=== PATIENT | female | born 1990 | race Caucasian/White ===

== ENCOUNTER → 2017-11-24 09:13 | Outpatient (CLI) | payer SELFPAY ==
[2017-11-26 13:25] LABS: HPV Reflexed? NOT INDICATED
== END ==
PROVIDERS: Visit Provider Obstetrics & Gynecology
DX: Z12.4 Encounter for screening for malignant neoplasm of cervix (principal)
CPT/HCPCS: 88175; G0145

== ENCOUNTER → 2019-10-27 | Outpatient (CLI) | payer SELFPAY ==
[2019-11-01 13:47] LABS: HPV Reflexed? NOT INDICATED
== END | disposition home or self-care (01) ==
PROVIDERS: Referring Provider Obstetrics & Gynecology; Visit Provider Obstetrics & Gynecology
DX: Z12.4 Encounter for screening for malignant neoplasm of cervix (principal)
CPT/HCPCS: 88175; G0145

== ENCOUNTER → 2020-07-25 17:07 | Outpatient (CLI) | payer SELFPAY ==
[2015-12-18 07:10] VITALS: BMI 34.9
[2020-07-25 17:59] LABS: Absolute Lymphocyte Count 1.98 X10^3/uL (0.83-4.51); Basophil# 0.02 X10^3/uL; Basophil% 0.2 % (0-1); Eosinophils% 1.1 % (0-5); Hematocrit 37.2 % (37-47); Hemoglobin 12.6 g/dL (12.0-15.0); Lymphocyte # 1.98 X10^3/ul (4.0); Lymphocyte % 22.6 % (19-41); Mean Corp Hgb Conc 33.9 g/dL (32-36); Mean Corpuscular Hgb 30.6 pg (27.0-32.0); Mean Corpuscular Volume 90.3 fL (81-99); Mean Platelet Vol. 11.2 fl (6.2-12.0); Monocyte# 0.64 X10^3/uL; Monocyte% 7.3 % (0-10); NRBC Flagged by Analyzer 0 % (0-5); Neutrophil % 68.5 % (47-70); Platelet Count 175 K/mm3 (150-450); RBC Distribution Width CV 11.8 % (11.6-14.6); RBC Distribution Width SD 38.6 fl (35.1-43.9); Red Blood Count 4.12 M/mm3 (4.2-5.4); White Blood Count 8.8 K/mm3 (4.4-11.0)
[2020-07-25 18:03] LABS: Color, Urine Yellow (Yellow); Glucose, Dipstick Normal (Normal); Ketone-Dipstick Negative (Negative); Leukocyte Esterase-Dipstick Negative /ul (Negative); Nitrite-Dipstick Negative (Negative); Occult Blood-Urine Negative /ul (Negative); Protein-Dipstick Negative (Negative); Specific Gravity, Urine 1.025 (1.002-1.030); Urine Bilirubin Dipstick Negative (Negative); Urine Clarity Sl. Cloudy (Clear); Urine Urobilinogen Normal (Normal)
[2020-07-25 18:56] LABS: Thyroid Stim Hormone (TSH) 1.05 uIU/mL (0.358-3.74)
[2020-07-26 09:00] LABS: HIV - WCH Non-Reactive (Nonreactive); Hepatitis B Surface Antigen Non-Reactive (Nonreactive); Hepatitis C Antibody Non-Reactive (Nonreactive)
[2020-07-26 10:23] LABS: Rubella IgG Reactive (Nonreactive)
[2020-07-30 03:06] LABS: Chlamydia By Nucleic Acid AMP Negative (Negative)
[2020-07-30 12:08] LABS: Gonococcus By Nucleic Acid AMP Negative (Negative)
[2020-08-01 02:10] LABS: Prenatal RPR NONREACTIVE (NONREACTIVE)
== END ==
PROVIDERS: Visit Provider Obstetrics & Gynecology
DX: Z34.81 Encounter for supervision of other normal pregnancy, first trimester (principal); Z11.3 Encounter for screening for infections with a predominantly sexual mode of transmission
CPT/HCPCS: 36415; 81002; 84443; 85025; 86703; 86762; 86803; 87340; 87491; 87591

== ENCOUNTER → 2020-11-13 10:44 | Outpatient (CLI) | payer SELFPAY ==
[2015-12-18 07:10] VITALS: BMI 34.9
[2020-11-13 11:03] LABS: Hematocrit 33.5 % (37-47); Hemoglobin 11.6 g/dL (12.0-15.0); Mean Corp Hgb Conc 34.6 g/dL (32-36); Mean Corpuscular Hgb 31.8 pg (27.0-32.0); Mean Corpuscular Volume 91.8 fL (81-99); Mean Platelet Vol. 10.3 fl (6.2-12.0); Platelet Count 157 K/mm3 (150-450); RBC Distribution Width CV 12.3 % (11.6-14.6); RBC Distribution Width SD 41.2 fl (35.1-43.9); Red Blood Count 3.65 M/mm3 (4.2-5.4); White Blood Count 8.9 K/mm3 (4.4-11.0)
[2020-11-13 11:33] LABS: Glucose Challenge Gest 1H 50g 96 mg/dL (70-140)
== END ==
PROVIDERS: Visit Provider Obstetrics & Gynecology
DX: Z34.83 Encounter for supervision of other normal pregnancy, third trimester (principal)
CPT/HCPCS: 36415; 82950; 85027

== ENCOUNTER → 2021-01-07 | Outpatient (CLI) | payer SELFPAY | END | disposition home or self-care (01) | LOC: LABSPEC 01-08 09:30 | PROVIDERS: Visit Provider Obstetrics & Gynecology | DX: Z36.85 Encounter for antenatal screening for Streptococcus B (principal) | CPT/HCPCS: 87081 ==

== ENCOUNTER 2021-02-07 15:40 | Outpatient (CLI) | payer SELFPAY, OTHER ==
[2015-12-18 07:10] VITALS: BMI 34.9
[2021-02-07 16:05] VITALS: BMI 38.0
[2021-02-07 16:07] VITALS: BP 128/73; PULSE 93
--- NOTE | 2021-02-09 09:44 | OB.TRI.NOTE ---
HPI - General HPI Narrative ATUL MACDONALD, is a 30 F who presents to labor and delivery with some contractions. She is scheduled for induction in 2 days for postdatism. care is otherwise been uneventful. [facility] Home Medications vit,[id number] [Prenatabs FA] 1 tab PO DAILY 12/18/15 [History Last Taken 2 Days Ago ~12/16/15] Allergy/AdvReac Type Severity Reaction Status Date / Time No Known Allergies Allergy Verified 12/18/15 07:51 Social History Smoking Status: Never smoker History Elective abortions Hx Para 3 Spontaneous abortions Hx # Term Pregnancies Ectopic pregnancies Hx # Pregnancies Multiple births # of living children NST FHR Rate Baby A NST Reactive:: Yes FHR Category:: Category I Assessment & Plan Assessment/Plan (1) False labor, antepartum: PLAN: 40+ week intrauterine with false labor. No change in cervical exam after monitoring for several hours. To come in for scheduled induction or if labor ensues prior to that.
== END 2021-02-07 17:40 ==
LOC: WPOUT 15:54 → WP 15:54
PROVIDERS: Referring Provider Obstetrics & Gynecology; Visit Provider Obstetrics & Gynecology
DX: O47.1 False labor at or after 37 completed weeks of gestation (principal); Z3A.40 40 weeks gestation of pregnancy
CPT/HCPCS: 59025; 59050; 99218; G0378

== ENCOUNTER 2021-02-10 09:25 | Inpatient (IN) | payer SELFPAY, OTHER ==
[2021-02-10] VITALS (60 sets, daily range): BP systolic 94–137; BP diastolic 53–89; PULSE 60–95; TEMP 36.2–36.9; O2SAT 86–100; BMI 37.5
[2021-02-10] MEDS: Lactated Ringers 1,000 ML 50 ML IV (09:55)
[2021-02-10] MEDS: Oxytocin 30 units/NS 500 ml 30 UNITS/500 ML IV.SOLN IV (10:22)
[2021-02-10 10:25] LABS: Absolute Neutrophil Count 5.8 X10^3/uL (2.0-7.7); Basophil# 0.01 X10^3/uL; Basophil% 0.1 % (0-1); Eosinophil# 0.06 X10^3/uL; Eosinophils% 0.7 % (0-5); Hematocrit 34.8 % (37-47); Hemoglobin 11.7 g/dL (12.0-15.0); Lymphocyte % 20.7 % (19-41); Mean Corp Hgb Conc 33.6 g/dL (32-36); Mean Corpuscular Volume 92.3 fL (81-99); Mean Platelet Vol. 10.7 fl (6.2-12.0); Monocyte% 7.3 % (0-10); NRBC Flagged by Analyzer 0 % (0-5); Neutrophil # 5.79 X10^3/uL (2.7-7.7); Neutrophil % 70.7 % (47-70); Platelet Count 115 K/mm3 (150-450); RBC Distribution Width CV 12.5 % (11.6-14.6); RBC Distribution Width SD 41.9 fl (35.1-43.9); Red Blood Count 3.77 M/mm3 (4.2-5.4); White Blood Count 8.2 K/mm3 (4.4-11.0)
[2021-02-10] MEDS: fentaNYL 100 MCG/2 ML Ampul IV (14:49)
[2021-02-10] MEDS: Lactated Ringers 500 ML 999 ML IV (15:10)
[2021-02-10] MEDS: fentaNYL-bupivacaine (epidural) 100 ML BAG EPIDURAL (16:50)
[2021-02-10] MEDS: Lactated Ringers 1,000 ML 200 ML IV (17:59)
[2021-02-10] MEDS: Oxytocin 30 units/NS 500 ml 30 UNITS/500 ML IV.SOLN 334 UNITS IV (20:07)
--- NOTE | 2021-02-10 20:19 | HP.PCM_ITS ---
History and Physical Date of Admission: 02/10/21 OG ANTEPARTUM RECORD - HISTORY AND PHYSICAL (02/10/2021) Name: NILDA MACDONALD History of this : This is a 30 year old [id number] presents at 41 wks + 1 days gestation for postdates induction. OB Physician: Balta Saleh MD [place]'s Physician: [facility] in [place] ...................................................................... : 1990 Age: 30 [address]: [address] [place] [address] Phone: H) [phone] Insurance Carrier: Emergency Contact: MARIBELL NORMAN [phone] ...................................................................... Final RAUDEL: 02/02/21 By Ultrasound: 12 weeks 4 days PARITY: (G-Total Pregnancies P-Fullterm,Premature,Induced AB,Spont AB, Ectopics, Multiple,Living) RAUDEL CONFIRMATION: By LMP: 04/28/20 Initial Exam: 02/02/21 By First Ultrasound Exam: 02/02/21 Final RAUDEL: 02/02/21 OB PROBLEM LIST: History leg varicosities, mastitis w first two babies, chickenpox. Thinks she and whole family had COVID19 mid Jun. ALBERT, ST, loss of taste/smell. Mildly echogenic bowel and small heart calcificaton; no further f/u planned MSAFP and CF testing declined ALLERGIES: NKDA MEDICATIONS: 28 mg-800 mcg tablet daily SOCIAL HISTORY: Smoking - Never Alcohol Use - occasionally not while Diet - moderate, balanced diet, coffee 1-2 cups daily and water 3 liters Lifestyle - low stress lifestyle and Exercise - busy at home, walking Job Description - housewife Illicit Drug Use - denies use of street drugs Sexual Activity - Residence - lives with Place of - [place] Spouse-Sig Other Name - Aditya Spouse-Sig Other Occupation - Construction Spouse-Sig Other Phone No - [phone] Children Name(s) - Kely Mills, Az, Cony PRIOR DELIVERY HISTORY DEL DATE GEST LAB WT LB WT OZ TYPE ANES LABOR TX 02 Jun 07 40 6 6 14 Vag Epidural No Jan 07 40 6 6 7 Vag Epidural No Dec 10 41 6 7 11 Vag None No Apr 05 39 20 7 7 Vag Epidural No ANTEPARTUM FLOW CHART VISIT RTC FU F F [place] U U DATE WK MD WKS HT PN HR M SS BP ED WT [place] GL D EF ST __ ____ ___ __ __ ___ __ __ __ ___ __ __ __ ___ __ January JMW 6 38 V + + 116/70 sl 213 - - 2+ 50 -2 04 May 39 JMW 1 38 V + + 112/64 sl 214 - - S Dec JMW 1 38 V + + 108/64 sl 214 tr - S Dec JM 1 37 V + + 126/70 sl 213 tr - Dec 36 JMW 1 36 V + + 118/64 sl 216 tr - ft 50 -2 05 Dec JMW 1 35 + + 110/62 0 216 - - 11 Dec 25 JMW 2 32 + + 114/68 sl 212 tr - 17 Nov 24 JMW 3 28 + + 138/72 0 211 tr ne Oct 19 JMW 4 24 + + 116/64 sl 204 tr - 15 Sep 14 JMW 4 20 + + 114/72 sl 200 ne ne Aug 12 JMW 4 16 + ? 114/75 0 200 tr - ANTEPARTUM NOTE(S): Feb 04 2021: Ctxs-occas, Discharge noted, Induce Jan 28 2021: see progress note, Good FM Jan 21 2021: see progress note, Good FM Jan 14 2021: Ctxs-occas, Good FM Jan 07 2021: Ctxs-occas, GBS today, LARC signed Dec 30 2020: no concerns, informed of GBS at next visit Dec 05 2020: Low periodic cramping Nov 13 2020: GCT today, c/o yeast infection, monistat/lotrimin Oct 08 2020: Glucola/Instruction Given,Good FM Sep 10 2020: US today Aug 20 2020: doing well, declines AFP COMPREHENSIVE ANTEPARTUM NOTE(S): Jan 28 2021: Nilda presents for her PNV. She reports frequent crampiness but few contractions. Pt is a and sts she has never gone into labor on her own. She is wanting her membranes stripped today and sts if she does not deliver by next week would consider induction. She has only slight edema in her extremities. +FM noted. JT Jan 21 2021: Nilda presents for her PNV. She is reporting +FM and only has slight swelling in her lower extremities. Pt sts she is very crampy and has increased pelvic pressure, and also notes a dull ALBERT almost daily. Pt sts she is Just not feeling well overall. JT Jan 14 2021: 37wk, GBS negative. JM Jan 14 2021: H faxd to OB Dec 30 2020: Nilda is here for a PNV. Good FM. No edema present. No concerns expressed at this time. Informed of GBS and LARC at next visit. MK Dec 05 2020: Nilda presents here today for PNV and reports that the last two days she has noticed alittle periodic low cramping in her pelvic region. We discussed s/s of dehydration and she plans to increase her water intake. Urine Dip all negative with pH - 5 and Sp Gr 1.020. AVILA Nov 13 2020: Nilda is here for PNV. To have GCT drawn today. Having c/o possible yeast infection vaginally and in folds of panis. Having creamy white vaginal discharge with itching. No urinary symptoms. No edema presently but states she does usually have some swelling of hands by end of day. Good FM. Urine dipped tr/neg. LSS Sep 10 2020: Nilda is here for PNV. Had her US today. States she is feeling really well. No N/V. Eating and taking in fluids well. Having some slight swelling in hands in the am, but no edema in feet. Good FM. Urine dipped neg and neg. No concerns for today. LSS Aug 13 2020: TELEHEALTH NOB-- Nilda is a 30 yo G 5 P 4 Bahai homemaker w RAUDEL January 29, 2021 planning a vag del at [facility] without epidural using [facility] for post disch ped and to breastfeed. Her , Aditya works in construction. Their youngest is almost 5 and the pg was a surprise but they're happy. Nilda still has some nausea though it is improving and she is quite tired and sleeps when she can. Jul 25 2020: Nilda is being seen for missed menses. . 30 years old. UPT in office is positive. LMP 04/28/20. Pt is about 12 weeks and 4 days. RAUDEL 02/02/21. Pt experiencing nausea daily and occasional headaches. Last pap 2019 WNL. STD cultures today. information reviewed and given to pt. Medications and allergies are up to date. AM Jul 25 2020: ok REVIEW OF SYSTEMS: GENERAL - Denies fever, or chills SKIN - Denies rash, new skin lesions, or change in moles EYES - Denies blurred vision, or change in visual acuity EARS - Denies ear pain, or difficulty hearing NOSE - Denies nasal congestion, discharge, or bleeding MOUTH - Denies sore throat, or difficulty swallowing NECK - Denies pain or swelling RESPIRATORY - Denies shortness of breath, cough, wheezing CARDIOVASCULAR - Denies palpitations, chest pain, orthopnea, PND, peripheral edema, syncope or claudication GASTROINTESTINAL - Denies nausea, vomiting, diarrhea, constipation, Denies abdominal pain, melena and or bright red blood GENITOURINARY - Denies dysuria, frequency of urination, urgency, or hesitancy MUSCULOSKELETAL - Denies joint or muscle pain, or back pain NEUROLOGICAL - Denies localized numbness, weakness, or tingling PSYCHIATRIC - Denies depression, anxiety, substance abuse or suicide attempts ENDOCRINE - Denies heat or cold intolerance, weight loss or gain, increasing thirst HEMATO-IMMUNOLOGIC - Denies easy bruising, bleeding, oral ulcerations or recurrent infections GENETICS SCREENING: Age 35+ years: No Thalassemia: No Neural Tube Defect: No Down Syndrome: No FELIPE-SACHS: No Sickle Cell Disease: No Hemophilia: No Musc. Dystrophy: No Cystic Fibrosis: No-declines screening [place]ju[place] Chorea: No Mental Retardation: No Fragile X: No Other genetic: No Other defects: No SABs/still births: No Drugs since LMP: No INFECTION HISTORY: High risk AIDS: No High risk Hepatitis: No Exposed to TB: No Exposed to Herpes: No Rash/viral illness since LMP: No History of STD: No MENSTRUAL HISTORY: *Menses Amount/Duration: 4 daysMenses Regularity: RegularFrequency: monthlyBCP's at Conception: NoMenarche (Age Onset): 11HCG+: 12/23/2010* PAST SUMMARY: PARITY: 1. Total Pregnancies............ 5 2. Full Term Pregnancies........ 4 3. Premature.................... 0 4. Abortions - Induced.......... 0 5. Abortions - Spontaneous...... 0 6. Ectopics..................... 0 7. Multiple Births.............. 0 8. Living Children.............. 4 PAST #1: Date of :.................. 04/23/10 Gestation Weeks:................ 39 Length of labor(hours):......... 20 Sex:............................ M Weight-lbs:............... 7 Weight-oz:................ 7 Type of Delivery:............... Vag Type of Anesthesia:............. Epidural Place of Delivery:.............. [place] Treatment of Labor?:.... No Comment: PAST #2: Date of :.................. 05/29/11 Gestation Weeks:................ 40 Length of labor(hours):......... 6 Sex:............................ F Weight-lbs:............... 6 Weight-oz:................ 14 Type of Delivery:............... Vag Type of Anesthesia:............. Epidural Place of Delivery:.............. [place] Treatment of Labor?:.... No Comment: PAST #3: Date of :.................. 01/04/13 Gestation Weeks:................ 40 Length of labor(hours):......... 6 Sex:............................ F Weight-lbs:............... 6 Weight-oz:................ 7 Type of Delivery:............... Vag Type of Anesthesia:............. Epidural Place of Delivery:.............. [place] Treatment of Labor?:.... No Comment: INDUCTION, POST-DATES PAST #4: Date of :.................. 12/18/15 Gestation Weeks:................ 41 Length of labor(hours):......... 6 Sex:............................ F Weight-lbs:............... 7 Weight-oz:................ 11 Type of Delivery:............... Vag Type of Anesthesia:............. None Place of Delivery:.............. [place] Treatment of Labor?:.... No Comment: NO PHYSICAL EXAMINATION General Appearence: 30 yo female in no acute distress Vital Signs: AF, VSS Heart: RRR without rubs or gallops Lungs: CTA x 2 Breasts: deferred Abdomen: gravid Pelvis: Cervix: 3-4/75 Presentation: cephalic Station: -2 posterior Fetus: Size: AGA Movement: present Heart: present LAB TEST(S) ORDERED SINCE:05/08/20 08/01/2020 RPR 07/30/2020 CHLAMYDIA/GC SANGEETA APTIMA 07/26/2020 RUBELLA IGG 07/26/2020 HIV - [facility] 07/26/2020 HEPATITIS C ANTIBODY 07/26/2020 HEPATITIS B SURFACE ANTIGEN 07/25/2020 URINALYSIS, ROUTINE (DIPSTICK) 07/25/2020 THYROID STIM HORMONE (TSH) 07/25/2020 T AND S-NO CHARGE W/PNP 07/25/2020 CBC W/DIFF, AUTOMATED 02/10/2021 TYPE AND SCREEN 02/10/2021 CBC W/DIFF, AUTOMATED 01/12/2021 CULTURE, GROUP B STREPTOCOCCUS 11/13/2020 GLUCOSE CHALLENGE GEST 1H 50G 11/13/2020 CBC-COMPLETE BLOOD CNT NO DIFF == ==== Order Observation Description Value Ref_Range A* Site == ==== Labor [facility]~[address] [place], [address]~ TYPE AND SCRE AB SCREEN GEL NEGATIVE ML CBC W/DIFF, AUT NOTE MOSER CBC W/DIFF, AUT WBC 8.2 K/mm3 4.4-11.0 ML CBC W/DIFF, AUT RBC 3.77 M/mm3 4.2-5.4 L ML CBC W/DIFF, AUT HGB 11.7 g/dL 12.0-15.0 L ML CBC W/DIFF, AUT HCT 34.8 37-47 L ML CBC W/DIFF, AUT MCV 92.3 fL 81-99 ML CBC W/DIFF, AUT MCH 31.0 pg 27.0-32.0 ML CBC W/DIFF, AUT MCHC 33.6 g/dL 32-36 ML CBC W/DIFF, AUT RDW CV 12.5 11.6-14.6 ML CBC W/DIFF, AUT RDW SD 41.9 fl 35.1-43.9 ML CBC W/DIFF, AUT PLT 115 K/mm3 150-450 L ML CBC W/DIFF, AUT MPV 10.7 fl 6.2-12.0 ML CBC W/DIFF, AUT NEUT% 70.7 47-70 H ML CBC W/DIFF, AUT LY% 20.7 19-41 ML CBC W/DIFF, AUT MONO% 7.3 0-10 ML CBC W/DIFF, AUT EO% 0.7 0-5 ML CBC W/DIFF, AUT BASO% 0.1 0-1 ML CBC W/DIFF, AUT IG% 0.500 0.0-0.9 ML IG% - Immature Granulocytes (promyelocytes, myelocytes and metamyelocytes) > 1% indicates that a LEFT SHIFT is Present. CBC W/DIFF, AUT ABSOLUTE NEUT 5.8 X10 3/uL 2.0-7.7 ML CBC W/DIFF, AUT ABSOLUTE LYMPH 1.70 X10 3/uL 0.83-4.51 ML CBC W/DIFF, AUT NUCLEATED RBC 0 0-5 ML CULTURE, GROUP NOTE MOSER GLUCOSE CHALLEN NOTE MOSER GLUCOSE CHALLEN GLU GEST 50G 1H 96 mg/dL 70-140 ML CBC-COMPLETE BL NOTE MOSER CBC-COMPLETE BL WBC 8.9 K/mm3 4.4-11.0 ML CBC-COMPLETE BL RBC 3.65 M/mm3 4.2-5.4 L ML CBC-COMPLETE BL HGB 11.6 g/dL 12.0-15.0 L ML CBC-COMPLETE BL HCT 33.5 37-47 L ML CBC-COMPLETE BL MCV 91.8 fL 81-99 ML CBC-COMPLETE BL MCH 31.8 pg 27.0-32.0 ML CBC-COMPLETE BL MCHC 34.6 g/dL 32-36 ML CBC-COMPLETE BL RDW CV 12.3 11.6-14.6 ML CBC-COMPLETE BL RDW SD 41.2 fl 35.1-43.9 ML CBC-COMPLETE BL PLT 157 K/mm3 150-450 ML CBC-COMPLETE BL MPV 10.3 fl 6.2-12.0 ML RPR NOTE MOSER RPR RPR NONREACTIVE NONREACTIVE ML CHLAMYDIA/GC NA NOTE MOSER CHLAMYDIA/GC NA CHLAMY,NUC ACID Negative Negative LC CHLAMYDIA/GC NA GC BY NUC ACID Negative Negative LC Performed at: = - [facility] [id number] Compliance Testing Analyst: Apple Parisi MD, Phone: [phone] HEPATITIS C ANT NOTE MOSER HEPATITIS C ANT HEPATITIS C AB Non-Reactive Nonreactive ML Non Reactive: < 0.8 Equivocal: >/= 0.8 to < 1.0 Reactive: >/= 1.0 The CDC recommends that a reactive/equivocal HCV antibody result be followed up by the HCV Nucleic Acid Amplification test (007102) HEPATITIS B OG NOTE MOSER HEPATITIS B OG HEPB SURFACE AG Non-Reactive Nonreactive ML HIV - [facility] NOTE MOSER HIV - [facility] HIV - [facility] Non-Reactive Nonreactive ML RUBELLA IGG NOTE MOSER RUBELLA IGG RUBELLA IGG Reactive Nonreactive ML Antibody Results Interpretation of Immune Status Non Reactive Presumed Non-Immune Equivocal Equivocal Reactive Presumed Immune Reason for Type AND Screen/Red Cells: Surgery? N [facility]~[address] [place], [address]~ T AND BLOOD TYPE GEL A POSITIVE N ML T AND AB SCREEN GEL NEGATIVE N ML THYROID STIM HO NOTE MOSER THYROID STIM HO TSH 1.05 uIU/mL 0.358-3.74 ML URINALYSIS, ROU NOTE MOSER URINALYSIS, ROU COLOR Yellow Yellow ML URINALYSIS, ROU CLARITY Sl. Cloudy Clear ML URINALYSIS, ROU GLUCOSE, UR Normal mg/dl Normal ML URINALYSIS, ROU BILIRUBIN URINE Negative mg/dL Negative ML URINALYSIS, ROU KETONE UR Negative mg/dl Negative ML URINALYSIS, ROU SP.GR. DIPSTX 1.025 1.002-1.030 ML URINALYSIS, ROU PH UR 6.0 5.0 - 8.0 ML URINALYSIS, ROU PROT DIPSTX Negative mg/dl Negative ML URINALYSIS, ROU UROBILI Normal mg/dl Normal ML URINALYSIS, ROU NITRITE UR Negative Negative ML URINALYSIS, ROU OCCULT BLOOD-UR Negative /ul Negative ML URINALYSIS, ROU LEUK ESTERASE Negative /ul Negative ML CBC W/DIFF, AUT NOTE MOSER CBC W/DIFF, AUT WBC 8.8 K/mm3 4.4-11.0 ML CBC W/DIFF, AUT RBC 4.12 M/mm3 4.2-5.4 L ML CBC W/DIFF, AUT HGB 12.6 g/dL 12.0-15.0 ML CBC W/DIFF, AUT HCT 37.2 % 37-47 ML CBC W/DIFF, AUT MCV 90.3 fL 81-99 ML CBC W/DIFF, AUT MCH 30.6 pg 27.0-32.0 ML CBC W/DIFF, AUT MCHC 33.9 g/dL 32-36 ML CBC W/DIFF, AUT RDW CV 11.8 % 11.6-14.6 ML CBC W/DIFF, AUT RDW SD 38.6 fl 35.1-43.9 ML CBC W/DIFF, AUT PLT 175 K/mm3 150-450 ML CBC W/DIFF, AUT MPV 11.2 fl 6.2-12.0 ML CBC W/DIFF, AUT NEUT% 68.5 % 47-70 ML CBC W/DIFF, AUT LY% 22.6 % 19-41 ML CBC W/DIFF, AUT MONO% 7.3 % 0-10 ML CBC W/DIFF, AUT EO% 1.1 % 0-5 ML CBC W/DIFF, AUT BASO% 0.2 % 0-1 ML CBC W/DIFF, AUT IM GRAN % 0.300 % 0.0-0.9 ML IG% - Immature Granulocytes (promyelocytes, myelocytes and metamyelocytes) > 1% indicates that a LEFT SHIFT is Present. CBC W/DIFF, AUT ABSOLUTE NEUT 6.0 X10 3/uL 2.0-7.7 ML CBC W/DIFF, AUT ABSOLUTE LYMPH 1.98 X10 3/uL 0.83-4.51 ML CBC W/DIFF, AUT NRBC, FLAGGED 0 % 0-5 ML A POSITIVE RIRI Culture Group B Beta Streptococcus is not isolated. == ==== Impression /Plan: 41 wks + 1 days intrauterine for postdates induction with Pitocin and rupture of membranes. Preparations in progress for delivery.
--- NOTE | 2021-02-10 20:21 | OP.PCM_ITS ---
Maternal Data Information Final RAUDEL: 02/10/21 Final RAUDEL Source: US <20 weeks Gestational age: 41 weeks 1 day [place] Doctor Who Attended Delivery: Alonso Ruiz Vaginal Delivery Maternal Presentation Maternal Presentation: Medically Indicated Induction Type of Induction: Pitocin and Amniotomy Medical Reason for Induction: Post term Operative Information Date of Procedure: 02/10/21 Pre-Operative Diagnosis: IUP, Postdates Post-Operative Diagnosis: IUP, Postdates Type of Anesthesia: Epidural Estimated Blood Loss: 250 cc Findings Description of Procedure: Spontaneous vaginal delivery of a viable male with Apgars of 7/9 from an occiput anterior presentation with lightly stained meconium fluid and three-vessel placenta. Cord around the neck x1 loose. No episiotomy or lacerations. Sponges okay. Delivery physician: Balta Saleh MD. Presentation: Vertex Amniotic Membrane Rupture Type: Spontaneous Amniotic Fluid Description: Lightly stained meconium Placental Delivery Description: Spontaneous Placenta Disposition: [facility] Cord Vessel Description: 3 Vessels Cord Entanglement: Around neck x 1, loose A Gender: Male (1 minute): 7 (5 minute): 9 Post Vaginal Delivery Medications Given After Delivery: IV Pitocin Episiotomy Description: None Laceration: None Complication Complications: None
--- NOTE | 2021-02-10 20:25 | PCM.DC ---
Discharge Instructions Diet Discharge Diet: No restrictions Activity Discharge Activity: May Shower May resume sexual activity in: 4-6 weeks Additional Activity Instructions:: Nothing in the vagina for 4-6 weeks. You may return to work/school in 6 weeks. Dressing / Incision Call your doctor if you observe: Fever of 101 or Higher, Inability to urinate, Inability to have a bowel movement and Using more than one pad per hour Follow Up Care Please Follow Up With: Balta Saleh MD When: Call [phone] to make an appointment with your doctor in 6 weeks. Test Results: Test results from this visit will be discussed in further detail at your follow-up appointment, if applicable. Discharge Plan Admission Admit Date/Time: 02/10/21 09:25 Primary Reason for Your Visit: Vaginal Delivery Attending Provider: Balta Saleh Discharge Orders/Prescriptions Prescriptions: Continued Prenatabs FA 1 TABLET tablet 1 tab PO DAILY RF: 0 Disposition Disposition (needs filled in before D/C Order can be placed): Home, self care
--- NOTE | 2021-02-10 23:05 | NURSING ---
Report given to Salud ORLANDO, taking over pt and infant care at this time.
[2021-02-11 00:23] VITALS: BP 113/83; PULSE 82; RESP 18; TEMP 36.9
[2021-02-11 04:10] VITALS: BP 97/53; PULSE 66; TEMP 36.8
[2021-02-11] MEDS: Acetaminophen 500 MG Tablet 1000 MG PO (04:22)
[2021-02-11 07:58] VITALS: BP 103/61; PULSE 75; RESP 16; TEMP 36.4
--- NOTE | 2021-02-11 08:38 | PN.OBGYN_ITS ---
Subjective Subjective Patient without complaints. Minimal vaginal bleeding. Breast-feeding going well. Wants to go home if baby is able to go later today. Objective Data Objective Data Vital Signs: Vital Signs Temp Pulse Resp BP Pulse Ox 97.6 F L 75 16 103/61 99 02/11/21 07:58 02/11/21 07:58 02/11/21 07:58 02/11/21 07:58 02/10/21 22:16 Oxygen Delivery Method Room Air Weight: 212 lb 1.355 oz Body Mass Index (BMI) 37.5 Intake & Output: Intake and Output for Last 24 Hours 02/09/21 02/10/21 02/11/21 23:59 23:59 23:59 Intake Total 2429.33 / 2429.33 Output Total 600 / 600 1240 / 1240 Balance 1829.33 / 1829.33 -1240 / -1240 Lab / Micro Data Result Diagrams: 02/10/21 09:55 Labs: Laboratory Results - last 24 hr 02/10/21 02/10/21 09:55 09:55 WBC 8.2 RBC 3.77 L Hgb 11.7 L Hct 34.8 L MCV 92.3 MCH 31.0 MCHC 33.6 RDW Std Deviation 41.9 RDW Coeff of Zia 12.5 Plt Count 115 L MPV 10.7 Immature Gran % (Auto) 0.500 Neut % (Auto) 70.7 H Lymph % (Auto) 20.7 [place]orne % (Auto) 7.3 Eos % (Auto) 0.7 Baso % (Auto) 0.1 Absolute Neuts (auto) 5.8 Absolute Lymphs (auto) 1.70 Nucleated RBC % 0 Blood Type A POSITIVE Antibody Screen NEGATIVE Assessment & Plan (1) Vaginal delivery: COMMENT: Doing well day #1 status post routine spontaneous vaginal delivery. Will discharge to home later today if baby is able to go.
[2021-02-11 12:37] VITALS: BP 101/54; PULSE 778; RESP 18; TEMP 36.4
[2021-02-11 16:40] VITALS: BP 111/72; PULSE 81; RESP 18; TEMP 36.4
[2021-02-11 20:35] VITALS: BP 113/59; PULSE 81; RESP 16; TEMP 36.9
[2021-02-12 02:45] VITALS: BP 115/70; PULSE 68; RESP 18; TEMP 36.1
[2021-02-12 08:40] VITALS: BP 110/63; PULSE 84; RESP 16; TEMP 36.6
--- NOTE | 2021-02-12 08:53 | PCM.PN.OB ---
Subjective Subjective Patient without complaints. Breast-feeding going well. Stay last evening because baby needed to stay. Objective Data Objective Data Vital Signs: Vital Signs Temp Pulse Resp BP Pulse Ox 97 F L 68 18 115/70 99 02/12/21 02:45 02/12/21 02:45 02/12/21 02:45 02/12/21 02:45 02/10/21 22:16 Oxygen Delivery Method Room Air Weight: 212 lb 1.355 oz Body Mass Index (BMI) 37.5 Intake & Output: Intake and Output for Last 24 Hours 02/10/21 02/11/21 02/12/21 23:59 23:59 23:59 Intake Total 2429.33 / 2429.33 Output Total 600 / 600 1240 / 1240 Balance 1829.33 / 1829.33 -1240 / -1240 Lab / Micro Data Result Diagrams: 02/10/21 09:55 Assessment & Plan (1) Vaginal delivery: COMMENT: Doing well day #1 status post routine spontaneous vaginal delivery. Will discharge to home later today.
== END 2021-02-12 10:35 | disposition home or self-care (01) | DRG 807 ==
PROVIDERS: Admitting Provider Obstetrics & Gynecology; Visit Provider Obstetrics & Gynecology
DX: O48.0 Post-term pregnancy (principal); Z37.0 Single live birth; Z3A.41 41 weeks gestation of pregnancy; O77.0 Labor and delivery complicated by meconium in amniotic fluid; O69.81X0 Labor and delivery complicated by cord around neck, without compression, not applicable or unspecified
CPT/HCPCS: 59025; 59050; 85025; 86850; 86900; 86901; 99218; J7120; G0378; J3490

== ENCOUNTER → 2021-03-25 13:25 | Outpatient (CLI) | payer OTHER, SELFPAY ==
[2021-02-10 09:48] VITALS: BMI 37.5
[2021-03-28 03:07] LABS: Chlamydia By Nucleic Acid AMP Negative (Negative)
[2021-03-28 10:41] LABS: Gonococcus By Nucleic Acid AMP Negative (Negative)
== END ==
PROVIDERS: Visit Provider Student in an Organized Health Care Education/Training Program
DX: Z30.430 Encounter for insertion of intrauterine contraceptive device (principal); Z11.3 Encounter for screening for infections with a predominantly sexual mode of transmission
CPT/HCPCS: 87491; 87591

== ENCOUNTER → 2024-10-04 | Outpatient (CLI) | payer OTHER, SELFPAY ==
[2024-10-10 11:07] LABS: HPV APTIMA, High Risk Negative (Negative)
== END | disposition home or self-care (01) ==
LOC: LABSPEC 16:38
PROVIDERS: Referring Provider Advanced Practice Midwife; Visit Provider Advanced Practice Midwife
DX: Z12.4 Encounter for screening for malignant neoplasm of cervix (principal)
CPT/HCPCS: 87624; 88175; G0145